=== PATIENT | male | born 1990 | race American Indian/Alaskan Native ===

== ENCOUNTER 2019-06-09 20:39 | Emergency (ER) | payer OTHER ==
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
[2019-06-10] MEDS ORDERED: NORCO 5/325 PO SCH (01:00)
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
[2019-06-10 02:28] VITALS: BP 110/62
== END 2019-06-10 02:27 | disposition home or self-care (01) ==
LOC: ED 20:39
DX: S46.912A Strain of unspecified muscle, fascia and tendon at shoulder and upper arm level, left arm, initial encounter (principal); M54.2 Cervicalgia; M62.830 Muscle spasm of back; F17.200 Nicotine dependence, unspecified, uncomplicated; V89.2XXA Person injured in unspecified motor-vehicle accident, traffic, initial encounter; Y93.89 Activity, other specified; Y92.488 Other paved roadways as the place of occurrence of the external cause; Y99.8 Other external cause status
CPT/HCPCS: 72040; 99283